=== PATIENT | female | born 1940 | race Caucasian/White ===

== ENCOUNTER → 2016-09-10 | Outpatient (CLI) | payer MEDICARE, OTHER ==
--- NOTE | 2016-09-10 13:06 | RAD ---
DATE: 09/10/2016 EXAM: DIGITAL SCREEN RT W/CAD HISTORY: Screening. The history of left breast malignancy with subsequent mastectomy is noted. COMPARISON: One year earlier This study was interpreted with the benefit of Computerized Aided Detection (CAD). FINDINGS: The breast parenchyma Is heterogeneiously dense, which could reduce sensitivity of mammography. Breast parenchyma level C. There has not been a significant change in the appearance of the breast compared to the previous exam. IMPRESSION: Benign findings BI-RADS CATEGORY: 2 BENIGN FINDING(S) RECOMMENDED FOLLOW-UP: 12M 12 MONTH FOLLOW-UP PQRS compliance statement: Patient information was entered into a reminder system with a target due date 09/10/2017 for the next mammogram. Mammography is a sensitive method for finding small breast cancers, but it does not detect them all and is not a substitute for careful clinical examination. A negative mammogram does not negate a clinically suspicious finding and should not result in delay in biopsying a clinically suspicious abnormality. "Our facility is accredited by the [employer] Mammography [employer]."
== END | disposition home or self-care (01) ==
LOC: MAMMO 09:09
PROVIDERS: ATTEND Nurse Practitioner Adult Health
DX: Z12.31 Encounter for screening mammogram for malignant neoplasm of breast (principal); Z85.3 Personal history of malignant neoplasm of breast
CPT/HCPCS: 77052; G0202; 77067

== ENCOUNTER → 2017-08-16 | Outpatient (CLI) | payer MEDICARE, OTHER | END | disposition home or self-care (01) | LOC: NM 08:18 | DX: C50.919 Malignant neoplasm of unspecified site of unspecified female breast (principal); M41.85 Other forms of scoliosis, thoracolumbar region; Z85.3 Personal history of malignant neoplasm of breast | CPT/HCPCS: 78306; 96374; A9503 ==

== ENCOUNTER → 2017-09-12 | Outpatient (CLI) | payer MEDICARE, OTHER | END | disposition home or self-care (01) | LOC: MAMMO 13:22 | DX: Z12.31 Encounter for screening mammogram for malignant neoplasm of breast (principal); Z85.3 Personal history of malignant neoplasm of breast | CPT/HCPCS: 77067 ==

== ENCOUNTER → 2017-09-13 | Outpatient (CLI) | payer MEDICARE, OTHER ==
[~2017-09-13] MED LIST: CONTRAST GIVEN MC
[2017-09-13 10:22] LABS: BLOOD UREA NITROGEN 20 mg/dL (7-20)
[2017-09-13 10:22] LABS: CREATININE 0.9 mg/dL (0.6-1.0)
[2017-09-13] MEDS: IOHEXOL 300 MG/ML 100ML VIAL. IV ×2 (10:38)
== END | disposition home or self-care (01) ==
LOC: CT 09:26
DX: M50.30 Other cervical disc degeneration, unspecified cervical region (principal); Z85.3 Personal history of malignant neoplasm of breast
CPT/HCPCS: 36415; 70491; 82565; 84520

== ENCOUNTER → 2020-09-22 | Outpatient (CLI) | payer MEDICARE, OTHER ==
--- NOTE | 2020-09-22 11:03 | RAD ---
DATE: 09/22/2020 10:01 AM EXAM: DIGITAL SCREEN RT W/CAD HISTORY: Screening . Personal history of left mastectomy 2005. COMPARISON: 09/17/2019, 09/15/2018 CC and MLO views of the right breast were performed. Right breast tomosynthesis was performed in CC and MLO projections. This study was interpreted with the benefit of Computerized Aided Detection (CAD). FINDINGS: Breast Density: HETERO The breast parenchyma Is heterogeneously dense, which could reduce sensitivity of mammography. Breast parenchyma level C No suspicious masses, microcalcifications or architectural distortion is present to suggest malignancy. The visualized axilla is unremarkable. IMPRESSION: No mammographic evidence of malignancy. BI-RADS CATEGORY: 1 NEGATIVE RECOMMENDED FOLLOW-UP: 12M 12 MONTH FOLLOW-UP Annual screening mammography is recommended, unless clinically indicated sooner based on symptoms or change in physical exam. PQRS compliance statement: Patient information was entered into a reminder system with a target due date for the next mammogram. Mammography is a sensitive method for finding small breast cancers, but it does not detect them all and is not a substitute for careful clinical examination. A negative mammogram does not negate a clinically suspicious finding and should not result in delay in biopsying a clinically suspicious abnormality. "Our facility is accredited by the [employer] Mammography [employer]."
== END ==
LOC: MAMMO 10:08
PROVIDERS: ATTEND Internal Medicine Hematology & Oncology
DX: Z12.31 Encounter for screening mammogram for malignant neoplasm of breast (principal)
CPT/HCPCS: 77067

== ENCOUNTER → 2021-07-20 | Outpatient (CLI) | payer OTHER ==
--- NOTE | 2021-07-20 12:35 | KCIC ---
EXAM: CT coronary artery calcium screening; radiologist over read. HISTORY: Cardiovascular screening. Hypercholesterolemia. TECHNIQUE: Computed tomographic images of the chest were obtained without contrast. Multiplanar refor matting was performed. *One or more of the following individualized dose reduction techniques were utilized for this examina tion: 1. Automated exposure control. 2. Adjustment of the mA and/or kV according to patient size. 3. Use of iterative reconstruction technique. COMPARISON: None. FINDINGS: The heart is normal in size. The aorta is normal in caliber. There is calcified atheroscler otic plaque involving the coronary arteries. There is no lymphadenopathy. There is anterior left uppe r lobe pleural parenchymal scarring. There is also a 10 mm focal opacity abutting the pleural of the anterior right middle lobe likely due to atelectasis or scarring. There is scoliosis. There is no rich picious osseous lesion. Coronary artery calcium score: Left main artery -0 Left anterior descending - 354.7 Left circumflex - 0 Right coronary artery - 12.3 Posterior descending artery - 0 TOTAL = 367. IMPRESSION: 1. Coronary artery calcium score of 367. There is moderate atherosclerotic plaque. 2. No acute thoracic finding. Electronically signed by: Betsy Kraft MD (07/20/2021 12:33 PM) [id number]
== END ==
LOC: KCIC CT 10:34
PROVIDERS: ATTEND Family Medicine
DX: I25.10 Atherosclerotic heart disease of native coronary artery without angina pectoris (principal); E11.69 Type 2 diabetes mellitus with other specified complication; E78.5 Hyperlipidemia, unspecified
CPT/HCPCS: 75571

== ENCOUNTER → 2021-09-28 | Outpatient (CLI) | payer MEDICARE, OTHER ==
--- NOTE | 2021-09-28 17:17 | RAD ---
INDICATION: 81 years of age asymptomatic female patient presents for screening mammography. Personal history of left breast cancer diagnosed in 2016 with subsequent mastectomy. TECHNIQUE: Full field craniocaudal and mediolateral oblique images of the right breast was obtained using digital technique with tomosynthesis and also analyzed with computer-aided detection software. COMPARISON: Prior mammographic imaging dating back to 09/08/2015. BREAST COMPOSITION: Category C: The breast tissue is heterogeneously dense, which could obscure detec tion of small masses. FINDINGS: Irregular mass at the 12 to 1:00 position, middle depth as seen on CC 3-D image 29/41 and MLO image 3 4/42. Approximately 2.3 cm anterolaterally to this is a additional irregular mass with associated arc hitectural changes as seen on CC image 29/41 and MLO image 23/42. The visualized axillae are unremarkable. IMPRESSION: There are 2 new irregular masses at the 11 to 1:00 position, anterior medial depth. RECOMMENDATION: The patient will be contacted to return for additional imaging beginning with diagnos tic right breast mammogram with spot compression and followed with targeted right breast ultrasound. Supplemental report will follow. BIRADS 0: INCOMPLETE - NEED ADDITIONAL IMAGING EVALUATION AND/OR PRIOR MAMMOGRAMS FOR COMPARISON. This study was interpreted with the benefit of Computerized Aided Detection (CAD). Patient information is entered into the reminder system with a target due date for the next screening mammogram. Mammography is the most sensitive method for finding small breast cancers, but it does not detect the m all and is not a substitute for careful clinical examination. A negative mammogram does not negate a clinically suspicious finding and should not result in delay in biopsying a clinically suspicious a bnormality. "Our facility is accredited by the [employer] Mammography Program." Electronically signed by: Jacky Plummer DO (09/28/2021 5:14 PM) [id number]
== END ==
LOC: MAMMO 10:36
PROVIDERS: ATTEND Internal Medicine Hematology & Oncology
DX: Z12.31 Encounter for screening mammogram for malignant neoplasm of breast (principal)
CPT/HCPCS: 77063; 77067

== ENCOUNTER → 2021-10-05 | Outpatient (CLI) | payer MEDICARE, OTHER ==
[~2021-10-05] MED LIST changes: +ACET500T68 PO; +ASPI-630 PO; +ATOR40TA59 PO; +CALC1TAB PO; +CHOL10008 PO; -CONTRAST GIVEN MC; +GABA600T7 PO; +GENTLE TEARS OU; +METF-658 PO
--- NOTE | 2021-10-05 15:23 | RAD ---
RIGHT DIAGNOSTIC MAMMOGRAPHY AND BREAST ULTRASOUND History: Abnormal screening mammogram. Personal history of left breast cancer diagnosed in 2016 with mastectomy. Comparison: Bilateral screening mammogram 09/28/2021. Technique: Right true lateral and spot compression CC and MLO digital mammogram views were obtained. Findings: Breast Tissue Density C : The breasts are heterogeneously dense, which may obscure small masses. Architectural distortion at the 12:00 position of the right breast at posterior depth does not resolv e with spot compression. The second area of architectural distortion slightly anterior and lateral to the other area is not well seen on the 2-D spot compression images. Real-time ultrasound imaging of the right breast is performed. Corresponding to the area of architectural distortion at the 12:00 position 6 cm from the nipple ther e is a 6 x 5 mm hypoechoic mass that has irregular margins and is taller than wide. Likely corresponding to the other area of architectural distortion at the 11:30 position 4 cm from th e nipple there is a 5 x 6 mm hypoechoic mass that has irregular margins and is taller than wide. There are no abnormal axillary lymph nodes. IMPRESSION: 1. Areas of architectural distortion in the right breast do not resolve with additional mammogram vi ews. 2. There is a small suspicious mass in the right breast at the 12:00 position 6 cm from the nipple. Ultrasound-guided biopsy is recommended. 3. There is a small suspicious mass in the right breast at the 11:30 position 4 cm from the nipple. Ultrasound guided biopsy is recommended. BI-RADS Category 4: Suspicious. The images were reviewed with computer-aided detection. Findings and recommendations discussed with the patient at the conclusion of the diagnostic workup an d also a message was left at Dr. Brambila's office at 10/05/2021 3:14 PM. Patient information is entered into the reminder system with a target due date for the next screening mammogram. Mammography is the most sensitive method for finding small breast cancers, but it does not detect the m all and is not a substitute for careful clinical examination. A negative mammogram does not negate a clinically suspicious finding and should not result in delay in biopsying a clinically suspicious a bnormality. "Our facility is accredited by the [employer] Mammography [employer]." Electronically signed by: Gurjit Domínguez MD (10/05/2021 3:20 PM) [place] [id number]
== END ==
LOC: MAMMO 13:20
PROVIDERS: ATTEND Family Medicine
DX: R92.8 Other abnormal and inconclusive findings on diagnostic imaging of breast (principal); R92.2 Inconclusive mammogram; N64.89 Other specified disorders of breast
CPT/HCPCS: 76641; 77065

== ENCOUNTER → 2021-10-22 | Outpatient (CLI) | payer MEDICARE, OTHER ==
--- NOTE | 2021-10-22 14:18 | RAD ---
MG DIAGNOSTICUNILAT MAMMO, US BREAST BIOPSY ADDL LESION, US GDE NDL BX/ASPIR/INJ/LOC History:Reason: Right breast masses. Comparison: October 05, 2021 Procedure: Relative benefits, risks and alternatives to the procedure were discussed and written inf ormed consent was obtained. With sterile technique, local anesthesia and ultrasound guidance, percutaneous biopsy was performed w ith a 14-gauge needle and multiple passes were obtained through the right breast 11:30 mass 4 cm from the nipple. A ribbon marker was placed. Similar technique was also performed on the additional mass at the 12:00 position 6 cm from the nippl e. A S-shaped marker was placed. Post Marker placement mammogram was obtained obtained demonstrating the ribbon S-shaped markers. Smal l postbiopsy hemorrhage is noted at the sites. The procedure was well tolerated. Specimens were sent to Pathology. The patient was sent home in good condition with written and verbal instructions. Impression: 1. Successful ultrasound guided right breast biopsy of two masses. 2. Ribbon-shaped marker was placed at the mass at 11:30 position. 3. S-shaped marker was placed in the mass at the 12:00 position. Pathology is pending. Electronically signed by: Bong Hays DO (10/22/2021 2:15 PM) [id number]
--- NOTE | 2021-10-26 17:11 | PATHOLOGY ---
[facility] Accession Number: [id number] . 01 Material submitted: . PART A: breast - RIGHT BREAST 11:30 4CMFN 6.9MM. Modifiers: right PART B: breast - RIGHT BREAST 12:00 6CMFN 5.9MM. Modifiers: right . 01 Clinical history: . RIGHT BREAST MASS RIGHT BREAST BIOPSY . 02 Diagnosis: A. Breast tissue, right breast mass 11:30 4 cm from nipple needle biopsies: - INVASIVE MAMMARY CARCINOMA WITH LOBULAR FEATURES, HISTOLOGIC GRADE I. SEE COMMENT. 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 - DUCTAL CARCINOMA IN SITU, LOW GRADE, CRIBRIFORM TYPE, FOCAL. . B. Breast tissue, right breast mass 12:00 6 cm from nipple needle biopsies: - INVASIVE DUCTAL CARCINOMA, HISTOLOGIC GRADE 1. - DUCTAL CARCINOMA IN SITU, LOW GRADE, CRIBRIFORM TYPE, FOCAL. (JPM/db/pit; 10/23/2021) . Surgical Pathology Cancer Case Summary Protocol posting date: September 2019 INVASIVE CARCINOMA OF THE BREAST: Biopsy Right breast mass 11:30 needle biopsy Procedure ___ Needle biopsy Specimen Laterality ___ Right Tumor Site ___ Clock position: 11:30 o'clock ___ Distance from nipple: 4 cm Tumor Size ___ Greatest dimension of largest invasive focus >1 mm: 5 mm Histologic Type ___ Invasive carcinoma with lobular features Histologic Grade ([place]ra Histologic Score) Glandular (Acinar)/Tubular Differentiation ___ Score 3 (<10% of tumor area forming glandular/tubular structures) Nuclear Pleomorphism ___ Score 1 (nuclei small with little increase in size in comparison with normal breast epithelial cells, regular outlines, uniform nuclear chromatin, little variation in size) Mitotic Rate ___ Score 1 Overall Grade ___ Grade 1 (scores of 3, 4, or 5) Ductal Carcinoma In Situ (DCIS) ___ Present Architectural Patterns ___ Cribriform Nuclear Grade ___ Grade I (low) Necrosis ___ Not identified Lymphovascular Invasion ___ Not identified Microcalcifications ___ Not identified Biomarker studies: ___ Pending . Surgical Pathology Cancer Case Summary Protocol posting date: September 2019 INVASIVE CARCINOMA OF THE BREAST: Biopsy Right breast mass 12:00 Procedure ___ Needle biopsy Specimen Laterality ___ Right Tumor Site ___ Clock position: 12 o'clock ___ Distance from nipple: 6 cm Tumor Size ___ Greatest dimension of largest invasive focus >1 mm: 5 mm Histologic Type ___ Invasive carcinoma of no special type (ductal) Histologic Grade ([place] Histologic Score) Glandular (Acinar)/Tubular Differentiation ___ Score 1 (>75% of tumor area forming glandular/tubular structures) Nuclear Pleomorphism ___ Score 1 (nuclei small with little increase in size in comparison with normal breast epithelial cells, regular outlines, uniform nuclear chromatin, little variation in size) Mitotic Rate ___ Score 1 Overall Grade ___ Grade 1 (scores of 3, 4, or 5) Ductal Carcinoma In Situ (DCIS) ___ Present Architectural Patterns ___ Cribriform Nuclear Grade ___ Grade I (low) Necrosis ___ Not identified Lymphovascular Invasion ___ Not identified Microcalcifications ___ Not identified Biomarker studies: ___ Pending . (JPM:[facility]; 10/26/2021) LBQ 10/26/2021 1521 Local . 02 Comment: Sections of the right breast mass 11:30 needle biopsy reveal an invasive mammary carcinoma. The tumor cells are present in infiltrating cords. The tumor cells are small and have small round uniform appearing nuclei. There are several ducts focally present which are distended by similar appearing small uniform cells. There are also a few ducts which are distended by a proliferation of larger ductal epithelial cells having low-grade nuclei and a cribriform arrangement. A limited panel of immunoperoxidase stains is obtained on A1 and yields the following results: . AE1/AE3: Infiltrating tumor cells and ducts distended by similar tumor cells positive E-Cadherin: Infiltrating tumor cells weakly positive; ducts distended by similar tumor cells weakly positive; ducts showing a cribriform arrangement of larger ductal epithelial cells strongly positive. . The morphologic and immunophenotypic features are supportive of the diagnosis of an invasive mammary carcinoma with lobular features with focal ductal involvement by lobular neoplasia and focal low-grade ductal carcinoma in situ. . Sections of the right breast 12:00 needle biopsy reveal an invasive low-grade ductal carcinoma. There is focal associated low-grade ductal carcinoma in situ of cribriform type. . Breast prognostic studies will be obtained on each biopsy, the results of which will be reported separately. . The case is also examined by Dr. Larkin, who concurs with the diagnosis. (JPM:[facility]; 10/26/2021) . Special stains performed: Immunoperoxidase stains for AE1/AE3 and E-Cadherin on A1. . 02 Electronically signed: . Noble Harris MD, Pathologist NPI- [id number] . 01 Gross description: . A. The specimen is received in formalin, labeled "Arianne Castaneda, Rt breast 11:30 4 cmfn" and the specimen consists of 5 fatty and hemorrhagic cylindrical tissues ranging in length from 0.8 cm to 1.4 cm and each averaging 0.2 cm in diameter. The specimen is submitted in toto in 3 cassettes. The cold ischemic time is less than 60 seconds. The total time in formalin is 7 hours. . B. The specimen is received in formalin, labeled "Arianne Castaneda, RT breast 12:00 6 cmfn" and the specimen cassette of 5 fatty and hemorrhagic cylindrical tissues ranging in length from 1.1 cm to 1.7 cm and each averaging 0.2 cm in diameter. The specimen is submitted in toto in 3 cassettes. The cold ischemic time is less than 60 seconds. The total time in formalin is 7 hours. ([place]; 10/22/2021) DKA/DKA 10/22/2021 1634 Local . 02 Pathologist provided ICD-10: C50.911, D05.11 . 02 CPT . 858091, 289278, [id number], [id number] Specimen Comment: A courtesy copy of this report has been sent to [phone] Specimen Comment: Report sent to Performed at: [address], [place], [place] [id number] MD Fantasma Murillo MD Phone: [phone] Performed at: 02 [facility] [address] [place], [place] [id number] MD Noble Harris MD Phone: [phone]
== END | disposition home or self-care (01) ==
LOC: US 12:13
PROVIDERS: ATTEND Family Medicine
DX: N63.11 Unspecified lump in the right breast, upper outer quadrant (principal); R92.8 Other abnormal and inconclusive findings on diagnostic imaging of breast; C50.911 Malignant neoplasm of unspecified site of right female breast
CPT/HCPCS: 19083; 19084; 77065; A4648; C1819; 76942; 88305; 88341; 88342; 88361

== ENCOUNTER 2021-11-09 09:13 | Observation (INO) | payer MEDICARE, OTHER ==
[~2021-11-09] VITALS: Ht 154.9 cm; Wt 56.8 kg
[~2021-11-09 09:13] MED LIST changes: +HYDROmorphone 2 MG/ML INJ. IVP PRN; +IV RINGERS,LACTATED 1000ML 1,000 ML IV SCH; +MORPHINE SULFATE 2 MG/ML INJ. IVP PRN; +PROCHLORPERAZINE 10 MG/2 ML VIAL. IVP PRN; +ceFAZolin SODIUM IV Push 1 GM VIAL. IVP PRN; +fentaNYL PF VIAL 100 MCG/2 ML VIAL IVP PRN
[2021-11-09] MEDS ORDERED: INSULIN LISPRO 100 UNIT/ML 3ML VIAL for OP,RR ONLY. SQ PRN (09:45)
[2021-11-09] MEDS ORDERED: MIDAZOLAM HCL/PF 2 MG/2 ML VIAL. ONE (09:55)
[2021-11-09] MEDS ORDERED: fentaNYL PF VIAL 100 MCG/2 ML VIAL ONE ×2 (09:55→15:01)
[2021-11-09] MEDS ORDERED: ROCURONIUM 50 MG/5 ML VIAL. ONE (09:55)
[2021-11-09] MEDS ORDERED: LIDOCAINE 2% PF 5 ML VIAL. ONE (09:55)
[2021-11-09] MEDS ORDERED: DEXAMETHASONE SOD PHOS 4 MG/ML VIAL ONE (09:55)
[2021-11-09] MEDS ORDERED: ONDANSETRON PF 4 MG/2 ML VIAL. ONE (09:55)
[2021-11-09] MEDS ORDERED: PROPOFOL 10 MG/ML (20ML) VIAL. IV ONE (09:55)
[2021-11-09] MEDS ORDERED: ISOSULFAN BLUE 1% 50 MG/5 ML VIAL. SQ ONE (11:47)
[2021-11-09] MEDS ORDERED: SEVOFLURANE 61 TO 120 MINUTES. IH ONE (13:09)
[2021-11-09] MEDS ORDERED: NEOSTIGMINE METHYLSULFATE 5 MG/5 ML SYRINGE. ONE (13:09)
[2021-11-09] MEDS ORDERED: GLYCOPYRROLATE 1 MG/5 ML VIAL. ONE (13:12)
--- NOTE | 2021-11-09 14:18 | PDOC4 ---
Operative Note Operative Note Operative Note: Preoperative Diagnosis: Right breast cancer Postoperative Diagnosis: Same Procedure: Right simple mastectomy, sentinel lymph node biopsy Surgeon: [employer] Associate: Nikki ZACARIAS, Emanuel Sylvester MS 3 Anesthesia: General EBL: 20 mL Specimen: Right axillary sentinel lymph node to pathology, right breast stitch at 12:00 to pathology Drains: 19 [place] drain to chest wall Complications: None Indication: The patient is a 81-year-old female who was found recently to have right breast cancer. She has elected for a simple mastectomy and we plan to incorporate a sentinel lymph node biopsy. The risks of surgery were discussed which include bleeding, infection, wound healing problems, scar tissue, pain, anesthetic risk, potential need for additional surgery procedure. She understands and would like to proceed. Description: The patient was taken to the operating room following injection in radiology with technetium sulfur colloid. General anesthesia was performed. The right breast and axilla were prepped with ChloraPrep and draped in a standar d surgical manner. 5 mL of Lymphazurin were injected deep to the nipple areolar complex. Several minutes were allowed to elapse. We marked an elliptical tracing for planned mastectomy. The superior lateral aspect of the tracing was incised with the scalpel. Cautery dissection was carried down to the axilla. There was 1 area of marked increased nuclear uptake corresponding to a sentinel lymph node. This lymph node did stained blue as well. This was harvested from surrounding tissues and sent to pathology. Frozen section showed no evidence of metastasis. There were no other areas of increased nuclear uptake, blue staining, or palpable adenopathy. We then proceeded with the mastectomy. The skin was incised along the remainder of the elliptical tracing. We developed the superior flap initially. The skin was from the subcutaneous tissue with cautery. The dissection was carried superiorly to the level just below the clavicle. In a similar manner the inferior flap was developed which included the inframammary fold. In a medial to lateral fashion the breast was taken off of the chest wall. A silk stitch was used to lyla the 12:00 location. The specimen was sent to pathology. Hemostasis was readily achieved with cautery. A 19 [place] BRENT drain was left in the right chest which exited inferolaterally. This was secured to the skin with 2-0 silk. The subcutaneous tissue was approximated with 3-0 Vicryl and the skin was closed with 4-0 Monocryl. A sterile OpSite dressing was then applied. The patient tolerated the procedure well and was sent to the recovery room in stable condition. At the end of the case all counts were correct EMILIE QUIÑONES MD Nov 09, 2021 14:18
[2021-11-09] MEDS ORDERED: HYDROcodone/APAP 5/325MG 1 TAB TABLET PO PRN ×2 (14:30)
[2021-11-09] MEDS ORDERED: IV NORMAL SALINE 1000ML BAG 1,000 ML IV SCH (14:30)
[2021-11-09] MEDS ORDERED: HYDROmorphone 2 MG/ML INJ. IV PRN (14:30)
[2021-11-09] MEDS ORDERED: ONDANSETRON PF 4 MG/2 ML VIAL. IVP PRN (14:30)
[2021-11-09] MEDS ORDERED: 0.9 % SODIUM CHLORIDE 10 ML DISP.SYRIN. IV PRN (14:30)
[2021-11-09] MEDS ORDERED: ACETAMINOPHEN 500 MG TABLET PO PRN (14:30)
[2021-11-09] MEDS ORDERED: NALOXONE 0.4 MG/ML VIAL. IV PRN (14:30)
[2021-11-09] MEDS ORDERED: PROCHLORPERAZINE 10 MG/2 ML VIAL. ONE (15:15)
[2021-11-09] MEDS: fentaNYL PF VIAL 100 MCG/2 ML VIAL IVP PRN ×2 (15:23→15:39)
--- NOTE | 2021-11-09 17:06 | RAD ---
Breast Lymphoscintigraphy Radiopharmaceutical: 1.0 mCi Tc-99m lymphoseek intradermally History: Right breast cancer. Findings: Following sterile preparation of the site, one 0.2 cc intradermal injection of the radioph armaceutical was placed at the superior areolar border. Impression: Successful intradermal radiotracer injection for intraoperative right axillary sentinel n ode identification. Electronically signed by: Peter Gonzales MD (11/09/2021 5:04 PM) [id number]
[2021-11-09 17:25] VITALS: BP 147/58
[2021-11-09 18:15] VITALS: BP 143/64
--- NOTE | 2021-11-09 19:24 | NUR ---
Patient arrived via bed and admitted to room 343 from PACU. O2 on @ 2L NC with SATS @ 100%. VS stable. NO C/O pain. LS clear bilaterally. Dressing D/I to right chest x 2. IV to right foot patent and infusing 1/2 NS @ 80cc/hr. Up to BR per patient request with assist from RN. Steady gait observed. Voided x1 with yellow urine noted. Back to bed, gown changed at this time. BRENT to right chest intact with rubra fluid noted in drain. Pt c/o a sore throat. Ice water given. No c/o Nausea.
[2021-11-09 19:30] VITALS: BP 141/68
[2021-11-09] MEDS: IV 1/2 NORMAL SALINE 1,000 ML IV SCH (19:36)
[2021-11-09] MEDS: metFORMIN XR 500 MG TAB.ER.24H PO SCH (20:18)
[2021-11-09] MEDS: CALCIUM CARB/VIT D3 500/200 TABLET. PO SCH (20:19)
[2021-11-09] MEDS: GABAPENTIN 100 MG CAPSULE. PO SCH (20:19)
[2021-11-09] MEDS ORDERED: ATORVASTATIN CALCIUM 40 MG TABLET. PO SCH (21:00)
[2021-11-09 23:59] VITALS: BP 114/60
[2021-11-10] MEDS: IV 1/2 NORMAL SALINE 1,000 ML IV SCH (03:00)
--- NOTE | 2021-11-10 03:08 | NUR ---
0300 1/2 NS not given at this time due to current bag still infusing.
[2021-11-10 04:30] VITALS: BP 141/59
[2021-11-10] MEDS: GABAPENTIN 100 MG CAPSULE. PO SCH (06:07)
[2021-11-10] MEDS: CALCIUM CARB/VIT D3 500/200 TABLET. PO SCH (08:00)
[2021-11-10 08:30] VITALS: BP 137/62
[2021-11-10] MEDS ORDERED: POLYVINYL ALCOHOL 1.4% OPHTH SOLUTION 15ML BOTTLE. OU SCH (09:00)
[2021-11-10] MEDS ORDERED: ASPIRIN CHEWABLE 81 MG TABLET. PO SCH (09:00)
--- NOTE | 2021-11-10 09:32 | NUR ---
Patient refusing AM meds. Patient states "I will resume my meds at home".
--- NOTE | 2021-11-10 11:28 | DISCH ---
DISCHARGE INSTRUCTIONS Condition on Discharge Condition on Discharge: Stable Activity After Discharge Activity Instructions for Disc: Activity as tolerated, Progressive ambulation Bathing Instructions: Shower-keep dressing dry Lifting Instructions after Dis: No heavy lifting Driving Instructions after Dis: Do not drive today Diet after Discharge Diet after Discharge: Diabetic No Calorie Level Wound Incision Care Wound/Incision Care: Keep wound/cast CDI, Do not change dressing Other wound/incision instructi: drain care as instructed Contacting the DRRina after DC Call your doctor for: Concerns you may have Follow-Up Follow up with: Dr Martinez 1 week, call to schedule [phone] PRAMOD SOARES HEAD START COORDINATOR Nov 10, 2021 11:28
--- NOTE | 2021-11-10 11:30 | PDOC3 ---
Discharge Summary Visit Information Date of Admission: Nov 09, 2021 Date of Discharge: Nov 10, 2021 Admitting Diagnosis: right breast cancer Final Diagnosis right breast cancer Brief Hospital Course Allergies Allergies Coded Allergies Type Severity Reaction Last Updated Verified No Known Drug Allergies 11/09/21 No Vital Signs Vital Signs Date Time Temp Pulse Resp B/P (MAP) Pulse Ox O2 Delivery O2 Flow Rate FiO2 11/10/21 10:31 Nasal Cannula 2.0 11/10/21 08:30 98.1 67 18 137/62 (87) 94 98.1 Lab Results Laboratory Tests Test 11/09/21 09:30 11/09/21 10:07 11/09/21 15:31 11/09/21 19:44 POC SARS CoV-2 Antigen Negative (NEGATIVE) Glucose (Fingerstick) 99 mg/dL (70-99) 115 mg/dL (70-99) 116 mg/dL (70-99) Test 11/10/21 08:16 Glucose (Fingerstick) 107 mg/dL (70-99) Laboratory Tests Test 11/09/21 15:31 11/09/21 19:44 11/10/21 08:16 Glucose (Fingerstick) 115 mg/dL (70-99) 116 mg/dL (70-99) 107 mg/dL (70-99) Brief Hospital Course Ms. Castaneda is a 81 old female who underwent Right simple mastectomy, sentinel lymph node biopsy. Postoperatively pain managed, ambulating, and ready for discharge home. Will discharge home with drain and follow up in 1 weeks EXAM: a/o right breast dressing dry, drain serosang output Discharge Information Condition at Discharge: Stable Follow Up: Weeks (1) Disposition/Orders: D/C to Home Scheduled Aspirin (Aspirin) 81 Mg Tab.chew, 81 MG PO DAILY for BLOOD THINNER, (Reported) Entered as Reported by: AURELIA PERKINS on 11/06/211625 Last Taken: Unknown Dose on 11/03/21 Last Action: Continued on 11/09/211421 by EMILIE QUIÑONES Atorvastatin Calcium (Atorvastatin Calcium) 40 Mg Tablet, 40 MG PO HS for FOR CHOLESTEROL, #30 Ref 0 (Reported) Entered as Reported by: AURELIA PERKINS on 11/06/211625 Last Taken: Unknown Dose on 11/08/21 1800 Last Action: Continued on 11/09/211421 by EMILIE QUIÑONES Calcium Carbonate/Vitamin D3 (Caltrate 600 + D Tablet) 1 Each Tablet, 1 EACH PO BID for CALCIUM SUPPLEMENT, (Reported) Entered as Reported by: AURELIA PERKINS on 11/06/211625 Last Action: Converted on 11/09/211421 by EMILIE QUIÑONES Cholecalciferol (Vitamin D3) (Vitamin D3) 25 Mcg Tablet, 25 MCG PO DAILY for SUPPLEMENT, (Reported) Entered as Reported by: AURELIA PERKINS on 11/06/211625 Last Action: HELD on 11/09/211421 by EMILIE QUIÑONES Gabapentin (Gabapentin) 600 Mg Tablet, 100 MG PO BID for NEUROGENIC PAIN, (Reported) Entered as Reported by: AURELIA PERKINS on 11/06/211625 Last Taken: Unknown Dose on 11/09/21 0600 Last Action: Converted on 11/09/211421 by EMILIE QUIÑONES Metformin Hcl (Metformin Hcl Er) 500 Mg Tab.er.24h, 500 MG PO DAILY16 for DIABETES, (Reported) Entered as Reported by: AURELIA PERKINS on 11/06/211625 Last Taken: Unknown Dose on 11/07/21 Last Action: Continued on 11/09/211421 by EMILIE QUIÑONES [Gentle Tears] , 1 DROP OU DAILY for DRY EYES, (Reported) Entered as Reported by: AURELIA PERKINS on 11/06/211625 Last Action: Converted on 11/09/211421 by EMILIE QUIÑONES Scheduled PRN Acetaminophen (Acetaminophen) 500 Mg Tablet, 500 MG PO PRN DAILY PRN for PAIN CONTROL, (Reported) Entered as Reported by: AURELIA PERKINS on 11/06/211625 Last Action: Continued on 11/09/211421 by EMILIE QUIÑONES Justicifation of Admission Dx: Justifications for Admission: Justification of Admission Dx: Yes Comments: right breast cancer [employer] Nov 10, 2021 11:30
[2021-11-10 12:30] VITALS: BP 163/75
[2021-11-10] MEDS: metFORMIN XR 500 MG TAB.ER.24H PO SCH (16:00)
[2021-11-10 16:10] VITALS: BP 155/68
--- NOTE | 2021-11-10 17:07 | NUR ---
Patient refused 1600 meds and will resume meds at home. 1610 DC instructions given verbally with handouts, patient voiced understanding. Patient DC'd via [facility] to vehicle accompanied by friend. All belonging in hand.
== END 2021-11-10 17:00 | disposition home or self-care (01) ==
LOC: SURG 09:13 → 4 NORTH 14:18 → 3 SO LND 16:16 → 3 NORTH 11-10 17:00
PROVIDERS: ADMIT Surgery; ATTEND Surgery
DX: C50.911 Malignant neoplasm of unspecified site of right female breast (principal); Z20.822 Contact with and (suspected) exposure to COVID-19; Z79.899 Other long term (current) drug therapy; Z98.890 Other specified postprocedural states
CPT/HCPCS: 19303; 38500; 38792; 82962; A4209; A4930; A6220; A6254; A6255; A6258; A6402; A9520; G0378; G0379; J0690; J0780; J1100; J2250; J2405; J2704; J2710; J3010; J3490; Q9968; 96374; A4223